=== PATIENT | female | born 1970 | race Caucasian/White ===

== ENCOUNTER 2017-02-10 07:26 | Day surgery (SDC) | payer BC ==
[~2017-02-10] VITALS: Ht 149.9 cm; Wt 67.1 kg
[2017-02-10 07:54] LABS: HCG,QUAL RESULT NEGATIVE (NEGATIVE)
[2017-02-10] MEDS ORDERED: ONDANSETRON HCL 4 MG/2 ML VIAL IVP ONE (09:25)
[2017-02-10] MEDS ORDERED: WATER FOR IRRIGATION,STERILE 1,000 ML IRRIG.SOLN IR ONE (09:25)
[2017-02-10] MEDS ORDERED: NS IRRIG SOLN 1000 ML IR ONE (09:25)
[2017-02-10] MEDS ORDERED: ROCURONIUM BROMIDE 10 MG/ML (ZEMURON) IV ONE (09:25)
[2017-02-10] MEDS ORDERED: OXYMETAZOLINE HCL 0.05% NASAL SPRAY NS ONE (09:25)
[2017-02-10] MEDS ORDERED: DEXAMETHASONE SOD PHOSPHATE 4 MG/ML VIAL IVP ONE (09:25)
[2017-02-10] MEDS ORDERED: BACITRACIN ZINC 15 GM TOPICAL OINTMENT TP ONE (09:25)
[2017-02-10] MEDS ORDERED: NS 50 ML BAG IV ONE (09:25)
[2017-02-10] MEDS ORDERED: PROPOFOL 200MG/ 20ML VIAL (DIPRIVAN) IV ONE (09:25)
[2017-02-10] MEDS ORDERED: SEVOFLURANE 15 MIN GAS INH ONE (09:25)
[2017-02-10] MEDS ORDERED: fentaNYL CITRATE 250 MCG/5 ML AMP IV ONE (09:25)
[2017-02-10] MEDS ORDERED: LR 1,000 ML IV.SOLN IV ONE (09:25)
[2017-02-10] MEDS ORDERED: MUPIROCIN 2% TOPICAL OINTMENT 22 GM TP ONE (09:25)
[2017-02-10] MEDS ORDERED: EPINEPHrine 1 MG/ML AMP IVP ONE (09:25)
[2017-02-10] MEDS ORDERED: MIDAZOLAM HCL 5 MG/5 ML VIAL IVP ONE (09:25)
[2017-02-10] MEDS ORDERED: LIDOCAINE/EPI 1% 1:100000 20 ML VIAL INJ ONE (09:25)
[2017-02-10] MEDS ORDERED: LR 1,000 ML IV SCH (10:53)
[2017-02-10] MEDS ORDERED: MORPHINE 2 MG/ML INJ. SYRINGE IVP PRN ×3 (11:00)
[2017-02-10] MEDS ORDERED: METOCLOPRAMIDE HCL 10 MG/2 ML VIAL IVP PRN (11:00)
[2017-02-10] MEDS ORDERED: MORPHINE 4 MG/ML INJ. SYRINGE ONE (12:36)
[2017-02-10 13:07] VITALS: BP_SYST 129
== END 2017-02-10 15:15 | disposition home or self-care (01) ==
LOC: SDS 07:26 → SMU 07:27 → SDS 15:15
PROVIDERS: ATTEND Otolaryngology
DX: J34.2 Deviated nasal septum (principal); J32.9 Chronic sinusitis, unspecified; J34.89 Other specified disorders of nose and nasal sinuses; G43.909 Migraine, unspecified, not intractable, without status migrainosus; E66.9 Obesity, unspecified
CPT/HCPCS: 30140; 30520; 30999; 31255; 31256; 31296; 31297; 84703; 88305; 88311; C1726; J0171; J1100; J2250; J2270; J2405; J2704; J3010; J7120